=== PATIENT | male | born 1960 | race Caucasian/White ===

== ENCOUNTER → 2018-10-20 | Day surgery (SDC) | payer OTHER ==
[~2018-10-20] MED LIST: FENTANYL CITRATE/PF 100MCG/2 ML INJ ONE; LIDOCAINE HCL 2% LOCAL INJ 5 ML SDV VIAL INJ ONE; MIDAZOLAM HCL 2 MG/2 ML VIAL ONE; NORCO 10-325 T1 EACH; PROPOFOL IV EMULSION 10 MG/ML 20 ML VIAL ONE
[2018-10-20 13:55] VITALS: BP 142/90
--- NOTE | 2018-10-20 17:03 | Operative Report ---
DATE OF PROCEDURE: 10/20/2018 SURGEON: Andrew Cisneros MD PROCEDURES: Esophagogastroduodenoscopy with biopsies and esophageal dilatation and a colonoscopy with polypectomy. INDICATIONS FOR EGD: Dysphagia, heartburn. INDICATION FOR COLONOSCOPY: Colorectal cancer screening. MEDICATIONS: The patient was done under MAC, please see anesthesiologist's note. PROCEDURE IN DETAIL: With the patient in left lateral decubitus position, the flexible fiberoptic Olympus gastroscope was introduced into the esophagus under direct visualization without any difficulty. Several minute nodules were noted in the cervical esophagus and biopsies were obtained. Serpiginous ulcers were noted to extend all the way to the GE junction without active bleeding or stigmata of recent hemorrhage. A minute nodule was noted at the GE junction that was biopsied. A mild stricture was noted at the GE junction that was dilated to size 52-Welsh Phelps. The scope was then advanced with ease into the stomach traversing a moderate-sized hiatal hernia. There were some erosions noted with black exudate in the crater compatible with recent hemorrhage in the antrum and biopsies were obtained and sent to stain for H pylori. The pylorus was of normal contour and shape, was intubated with ease and the scope was advanced all the way to the second portion of the duodenum. The scope was then withdrawn back into the stomach after obtaining biopsies from the second portion as well as the duodenal bulb to rule out sprue. The scope was then retroflexed into the stomach and the area around the fundus appeared to be within normal limits. The previously described hiatal hernia was also noted in the retroflexed position. The scope was then straightened out, it was subsequently withdrawn, the patient tolerated the procedure well. IMPRESSION: 1. Minute nodules, cervical esophagus, biopsied. 2. Ulcerative esophagitis. 3. Minute nodule, GE junction biopsied. 4. Mild stricture at GE junction dilated to size 52-Welsh Phelps. 5. Moderate-sized hiatal hernia. 6. Gastritis, erosive, biopsies obtained and sent to stain for Helicobacter pylori. 7. Rule out sprue. PLAN: Follow up histology. Initiate Protonix 40 mg one p.o. q.a.m. a.c. PROCEDURE IN DETAIL: The patient was then turned around after adequate lubrication of the anal canal. The flexible fiberoptic Olympus colonoscope was inserted into the rectum with ease and advanced all the way to the cecum. Diverticular disease was noted to be scattered throughout, but more prominent in the left colon. The scope was then withdrawn slowly whatever was visualized of the mucosa overlying the cecum, ascending, transverse and descending grossly appeared to be within normal limits other than for diverticular disease. There was also diverticular disease in the sigmoid colon and 3 minute polyps were hot biopsied from the sigmoid and two polyps were hot biopsied from the rectum. The scope was then retroflexed into the distal rectum and small internal hemorrhoids were noted, none of which was actively bleeding. The scope was then straightened out, it was subsequently withdrawn, the patient tolerated the procedure well. IMPRESSION: 1. Diverticulosis. 2. Sigmoid colon polyps x3, hot biopsied. 3. Rectal polyps x2, hot biopsied. 4. Internal hemorrhoids, none actively bleeding. PLAN: Follow up histology. Initiate high-fiber, low-fat diet. Initiate high-fiber supplement. The patient might benefit from a followup colonoscopy in 3 years. Andrew Cisneros MD [facility] /[id number] cc: Pam Slater DO
== END | disposition home or self-care (01) ==
LOC: OR 10:00
PROVIDERS: ATTEND Internal Medicine Gastroenterology
DX: Z12.11 Encounter for screening for malignant neoplasm of colon (principal); R13.10 Dysphagia, unspecified; R12 Heartburn; L40.9 Psoriasis, unspecified; K20.8 Other esophagitis; K29.60 Other gastritis without bleeding; K44.9 Diaphragmatic hernia without obstruction or gangrene; K22.2 Esophageal obstruction; K57.30 Diverticulosis of large intestine without perforation or abscess without bleeding; K63.5 Polyp of colon; K62.1 Rectal polyp; K64.8 Other hemorrhoids; K22.70 Barrett's esophagus without dysplasia
CPT/HCPCS: 43239; 43450; 45384; 93005; J2001; J2250; J2704; 45378

== ENCOUNTER → 2022-01-22 | Day surgery (SDC) | payer BC ==
[~2022-01-22] MED LIST changes: +HYOSCYAMINE SULFATE 0.5 MG/ML INJ ONE; +METOCLOPRAMIDE HCL 10 MG/2ML VIAL ONE; +MULTIVITAMIN; +QUERCETIN DIHYDR1 GM; +ZINC
[2022-01-22 17:05] VITALS: BP 121/81
== END | disposition home or self-care (01) ==
LOC: OR 12:41
PROVIDERS: ATTEND Internal Medicine Gastroenterology
DX: K22.70 Barrett's esophagus without dysplasia (principal); Z86.010 Personal history of colon polyps; K29.50 Unspecified chronic gastritis without bleeding; K21.00 Gastro-esophageal reflux disease with esophagitis, without bleeding; K52.89 Other specified noninfective gastroenteritis and colitis; K44.9 Diaphragmatic hernia without obstruction or gangrene; K59.00 Constipation, unspecified; K57.30 Diverticulosis of large intestine without perforation or abscess without bleeding; K64.8 Other hemorrhoids; L40.9 Psoriasis, unspecified; R03.0 Elevated blood-pressure reading, without diagnosis of hypertension; F41.9 Anxiety disorder, unspecified; Z01.810 Encounter for preprocedural cardiovascular examination; Z86.16 Personal history of COVID-19; Z87.891 Personal history of nicotine dependence
CPT/HCPCS: 43239; 43450; 45380; 93005; C9113; J1980; J2001; J2250; J2704; J2765; J3010